=== PATIENT | male | born 1960 | race Caucasian/White ===

== ENCOUNTER → 2017-06-04 | Outpatient (CLI) | payer OTHER ==
--- NOTE | 2017-06-04 14:19 | RAD ---
Thoracic spine x-rays Indication: Trauma. Technique: 3 views of the thoracic spine Comparison: None Findings: Thoracic spine is in normal anatomic alignment. No compression deformities. Mild multilevel intervertebral disc space narrowing with anterior bony spurring compatible with degenerative disc disease. C6-C7 degenerative disc disease. Visualized lungs are clear. Heart is normal in size. Impression: No acute findings. If concern for thoracic spine fracture is high, please consider CT thoracic spine without IV contrast.
--- NOTE | 2017-06-04 14:32 | RAD ---
Indication: Trauma Technique: AP and lateral views of the lumbar spine with coned-down views of the lumbosacral Junction Comparison: None Findings: Lumbar spine is in normal anatomic alignment. There are 5 lumbar vertebral bodies. No compression deformities. No significant intervertebral disc space narrowing. SI joints within normal limits. Impression: No acute findings.
== END | disposition home or self-care (01) ==
LOC: DXRAD 10:20
PROVIDERS: ATTEND Family Medicine
DX: M54.6 Pain in thoracic spine (principal); M54.5 Low back pain
CPT/HCPCS: 72072; 72100